=== PATIENT | female | born 1980 | race American Indian/Alaskan Native ===

== ENCOUNTER 2019-03-13 14:35 | Emergency (ER) | payer OTHER ==
--- NOTE | 2019-03-13 14:57 | Emergency Department Report ---
Blank Doc - Documentation Documentation: This is a 39-year-old female that presents with right upper abdominal pain with diarrhea. This initial assessment/diagnostic orders/clinical plan/treatment(s) is/are subject to change based on patient's health status, clinical progression and re- assessment by fellow clinical providers in the ED. Further treatment and workup at subsequent clinical providers discretion. Patient/guardians urged not to elope from the ED as their condition may be serious if not clinically assessed and managed. Initial orders include: 1- Patient sent to [facility] for further evaluation and treatment 2- labs 3- UA
[2019-03-13 15:27] LABS: Hematocrit 42.4 % (30.3-42.9); Hemoglobin 14.3 gm/dl (10.1-14.3); Mean Corpuscular HGB Conc 34 % (30-34); Mean Corpuscular Volume 95 fl (79-97); Platelet Count 359 K/mm3 (140-440); Red Blood Count 4.49 M/mm3 (3.65-5.03); Red Cell Distribution Width 13.8 % (13.2-15.2)
[2019-03-13 15:46] LABS: Alanine Aminotransferase 17 units/L (7-56); Albumin 4.1 g/dL (3.9-5); BUN/Creatinine Ratio 9; Blood Urea Nitrogen 7 mg/dL (7-17); Calcium 9.9 mg/dL (8.4-10.2); Hemolysis Index 3
[2019-03-13 16:22] LABS: Bacteria,Urine 1+ /HPF (Negative); Bilirubin,Urine NEG (Negative); Blood,Urine MOD (Negative); Color,Urine Yellow (Yellow); Mucus,Urine 3+ /HPF; Protein,Urine <15 mg/dL mg/dL (Negative); Urobilinogen,Urine < 2.0 mg/dL (<2.0)
[2019-03-13 16:29] LABS: Anisocytosis Few; Basophils % (Manual) 0 % (0.0-1.8); Total Cells Counted 100
--- NOTE | 2019-03-13 17:04 | Emergency Department Report ---
ED Abdominal Pain HPI - General Chief Complaint: Abdominal Pain Stated Complaint: ABD PAIN Time Seen by Provider: 03/13/19 14:56 Source: patient Mode of arrival: Ambulatory Limitations: No Limitations - History of Present Illness Initial Comments: Ms. Fuentes is a very pleasant 39-year-old female who presents with right upper quadrant abdominal pain for the past month. Mild intermittent pain. Now more persistent. Not associated with food or movement. She has recently moved to [facility] from [place]. 10 years ago she underwent lap band surgery. She wanted to make sure that she did not have any erosion. She was last seen by her bariatric surgeon in 2014 for a refill. She has had expected reflux symptoms. She has continued to lose weight. She has now under the care of a personal service workers. She has continued to lose weight with assistance of increased exercise. Her current weight is 200 pounds. Her original weight before bariatric surgery 293 pounds. In high school her weight was approximately 200 pounds. She is currently menstruating. MD Complaint: abdominal pain -: Gradual, month(s) (1) Location: RUQ Radiation: none Severity: mild Quality: aching, dull Consistency: intermittent, now resolved Improves With: nothing Worsens With: nothing Associated Symptoms: diarrhea, other (heart burn) - Related Data Allergies Allergy/AdvReac Type Severity Reaction Status Date / Time No Known Allergies Allergy Unverified 03/13/19 14:39 ED Review of Systems ROS: Stated complaint: ABD PAIN Other details as noted in HPI Comment: All other systems reviewed and negative Constitutional: denies: fever, malaise Eyes: denies: eye discharge, vision change Respiratory: denies: cough Cardiovascular: denies: chest pain Gastrointestinal: abdominal pain, diarrhea ED Past Medical Hx - Past Medical History Previous Medical History?: No - Surgical History Past Surgical History?: Yes Additional Surgical History: Lap band surgery 10 years ago. - Social History Smoking Status: Former Smoker Substance Use Type: None ED Physical Exam - General Limitations: No Limitations General appearance: alert, in no apparent distress - Head Head exam: Present: atraumatic, normocephalic - Eye Eye exam: Present: normal appearance - ENT ENT exam: Present: mucous membranes moist - Neck Neck exam: Present: normal inspection, full ROM - Respiratory Respiratory exam: Present: normal lung sounds bilaterally. Absent: respiratory distress, wheezes, rales, rhonchi - Cardiovascular Cardiovascular Exam: Present: regular rate, normal rhythm, normal heart sounds. Absent: systolic murmur, diastolic murmur, rubs, gallop - GI/Abdominal GI/Abdominal exam: Present: soft, normal bowel sounds. Absent: distended, tenderness, guarding - Extremities Exam Extremities exam: Present: normal inspection - Back Exam Back exam: Present: normal inspection - Neurological Exam Neurological exam: Present: alert, oriented X3 - Psychiatric Psychiatric exam: Present: normal affect, normal mood - Skin Skin exam: Present: warm, dry, intact, normal color. Absent: rash ED Course Vital Signs 03/13/19 14:56 Temperature 98.2 F Pulse Rate 85 Respiratory 16 Rate Blood Pressure 129/77 O2 Sat by Pulse 100 Oximetry ED Medical Decision Making - Lab Data Result diagrams: 03/13/19 15:11 03/13/19 15:11 Laboratory Results - last 24 hr 03/13/19 03/13/19 03/13/19 15:07 15:11 15:11 WBC 4.9 RBC 4.49 Hgb 14.3 Hct 42.4 MCV 95 MCH 32 MCHC 34 RDW 13.8 Plt Count 359 Add Manual Diff Complete Total Counted 100 Seg Neutrophils % Weed Eradicator Seg Neuts % (Manual) 32.0 L Band Neutrophils % 0 Lymphocytes % (Manual) 58.0 H Reactive Lymphs % (Man) 0 Monocytes % (Manual) 8.0 H Eosinophils % (Manual) 2.0 Basophils % (Manual) 0 Metamyelocytes % 0 Myelocytes % 0 Promyelocytes % 0 Blast Cells % 0 Nucleated RBC % Not Reportable Seg Neutrophils # Man 1.6 L Band Neutrophils # 0.0 Lymphocytes # (Manual) 2.8 Abs React Lymphs (Man) 0.0 Monocytes # (Manual) 0.4 Eosinophils # (Manual) 0.1 Basophils # (Manual) 0.0 Metamyelocytes # 0.0 Myelocytes # 0.0 Promyelocytes # 0.0 Blast Cells # 0.0 WBC Morphology Not Reportable Hypersegmented Neuts Not Reportable Hyposegmented Neuts Not Reportable Hypogranular Neuts Not Reportable Smudge Cells Not Reportable Toxic Granulation Not Reportable Toxic Vacuolation Not Reportable Dohle Bodies Not Reportable Pelger-Huet Anomaly Not Reportable Emma Rods Not Reportable Platelet Estimate Appears normal Clumped Platelets Not Reportable Plt Clumps, EDTA Not Reportable Large Platelets Not Reportable Giant Platelets Not Reportable Platelet Satelliting Not Reportable Plt Morphology Comment Not Reportable RBC Morphology Not Reportable Dimorphic RBCs Not Reportable Polychromasia Not Reportable Hypochromasia Not Reportable Poikilocytosis Not Reportable Anisocytosis Few Microcytosis Not Reportable Macrocytosis Not Reportable Spherocytes Not Reportable Pappenheimer Bodies Not Reportable Sickle Cells Not Reportable Target Cells Not Reportable Tear Drop Cells Not Reportable Ovalocytes Not Reportable Helmet Cells Not Reportable [place] Bodies Not Reportable [place] Rings Not Reportable [place] Cells Not Reportable Bite Cells Not Reportable Crenated Cell Not Reportable Elliptocytes Not Reportable Acanthocytes (Spur) Not Reportable Rouleaux Not Reportable Hemoglobin C Crystals Not Reportable Schistocytes Not Reportable Malaria parasites Not Reportable Harjinder Bodies Not Reportable Hem Pathologist Commnt No Sodium 139 Potassium 4.0 Chloride 101.3 Carbon Dioxide 27 Anion Gap 15 BUN 7 Creatinine 0.8 Estimated GFR > 60 BUN/Creatinine Ratio 9 Glucose 104 H Calcium 9.9 Total Bilirubin 0.30 AST 16 ALT 17 Alkaline Phosphatase 44 Total Protein 7.1 Albumin 4.1 Albumin/Globulin Ratio 1.4 HCG, Qual Negative Urine Color Urine Turbidity Urine pH Ur Specific [place] Urine Protein Urine Glucose (UA) Urine Ketones Urine Blood Urine Nitrite Urine Bilirubin Urine Urobilinogen Ur Leukocyte Esterase Urine WBC (Auto) Urine RBC (Auto) U Epithel Cells (Auto) Urine Bacteria (Auto) Urine Mucus 03/13/19 15:12 WBC RBC Hgb Hct MCV MCH MCHC RDW Plt Count Add Manual Diff Total Counted Seg Neutrophils % Seg Neuts % (Manual) Band Neutrophils % Lymphocytes % (Manual) Reactive Lymphs % (Man) Monocytes % (Manual) Eosinophils % (Manual) Basophils % (Manual) Metamyelocytes % Myelocytes % Promyelocytes % Blast Cells % Nucleated RBC % Seg Neutrophils # Man Band Neutrophils # Lymphocytes # (Manual) Abs React Lymphs (Man) Monocytes # (Manual) Eosinophils # (Manual) Basophils # (Manual) Metamyelocytes # Myelocytes # Promyelocytes # Blast Cells # WBC Morphology Hypersegmented Neuts Hyposegmented Neuts Hypogranular Neuts Smudge Cells Toxic Granulation Toxic Vacuolation Dohle Bodies Pelger-Huet Anomaly Emma Rods Platelet Estimate Clumped Platelets Plt Clumps, EDTA Large Platelets Giant Platelets Platelet Satelliting Plt Morphology Comment RBC Morphology Dimorphic RBCs Polychromasia Hypochromasia Poikilocytosis Anisocytosis Microcytosis Macrocytosis Spherocytes Pappenheimer Bodies Sickle Cells Target Cells Tear Drop Cells Ovalocytes Helmet Cells [place] Bodies [place] Rings Luciana Cells Bite Cells Crenated Cell Elliptocytes Acanthocytes (Spur) Rouleaux Hemoglobin C Crystals Schistocytes Malaria parasites Harjinder Bodies Hem Pathologist Commnt Sodium Potassium Chloride Carbon Dioxide Anion Gap BUN Creatinine Estimated GFR BUN/Creatinine Ratio Glucose Calcium Total Bilirubin AST ALT Alkaline Phosphatase Total Protein Albumin Albumin/Globulin Ratio HCG, Qual Urine Color Yellow Urine Turbidity Cloudy Urine pH 5.0 Ur Specific [place] 1.023 Urine Protein <15 mg/dl Urine Glucose (UA) Neg Urine Ketones Neg Urine Blood Mod Urine Nitrite Neg Urine Bilirubin Neg Urine Urobilinogen < 2.0 Ur Leukocyte Esterase Mod Urine WBC (Auto) 39.0 H Urine RBC (Auto) 4.0 U Epithel Cells (Auto) 10.0 Urine Bacteria (Auto) 1+ Urine Mucus 3+ - Medical Decision Making Ms. Fuentes presents with RUQ pain for one month. suspect biliary colic. REcommended low fat diet. She also had many questions about possible complications of lap band surgery. I have referred her to our bariatric surgeon and GI specialist. I reviewed labs obtained. CBC chemistry are within normal limits. Urinalysis is contaminated. She does not have any symptoms of urinary tract infection. No evidence of peritonitis. No indication of acute inflammatory process in the abdomen on clinical exam. Critical care attestation.: If time is entered above; I have spent that time in minutes in the direct care of this critically ill patient, excluding procedure time. ED Disposition Clinical Impression: Right upper quadrant abdominal pain, LAP-BAND surgery status Disposition: DC- TO HOME OR SELFCARE Is pt being admited?: No Does the pt Need Aspirin: No Condition: Stable Instructions: Abdominal Pain (ED) Referrals: ALYSSA BOUDREAUX MD [Staff Physician] - 3-5 Days NEHA CHEN MD [Staff Physician] - 3-5 Days Forms: Work/School Release Form(ED)
[2019-03-13 19:10] VITALS: BP 120/70
== END 2019-03-13 19:09 | disposition home or self-care (01) ==
LOC: ED 14:35
DX: R10.11 Right upper quadrant pain (principal); Z98.84 Bariatric surgery status; Z87.891 Personal history of nicotine dependence
CPT/HCPCS: 36415; 80053; 81001; 84703; 85007; 85025; 87086